=== PATIENT | male | born 1955 | race African-American/Black ===

== ENCOUNTER 2018-04-15 09:15 | Emergency (ER) | payer OTHER | END 2018-04-15 10:13 | disposition home or self-care (01) | LOC: ERS 09:15 | DX: L72.3 Sebaceous cyst (principal); K21.9 Gastro-esophageal reflux disease without esophagitis; I10 Essential (primary) hypertension; F17.210 Nicotine dependence, cigarettes, uncomplicated | CPT/HCPCS: 99282 ==